=== PATIENT | male | born 2000 | race American Indian/Alaskan Native ===

== ENCOUNTER 2022-01-20 23:08 | Emergency (ER) | payer SELFPAY ==
[2022-01-20 23:28] VITALS: BP 112/77
--- NOTE | 2022-01-21 05:10 | Emergency Department Report ---
ED ENT HPI - General Chief complaint: Earache Stated complaint: EARS RINGING Time Seen by Provider: 01/21/22 04:32 Source: patient Mode of arrival: Ambulatory Limitations: No Limitations - History of Present Illness Initial comments: 21 yo M who present with bilateral ringing and less hearing that started about 3 days ago after he was [place] the [place] range. Pt reports that he was at the gun range and use the proper ear plug. He however says that he started having problem while he was driving home not hearing load music. No fever or chills reported. No drainage from his ear or any other modifying or associated factors. - Related Data Previous Rx's Medication Instructions Recorded Last Taken Type Pseudoephedrine HCl [Sudafed 240 mg PO QDAY 5 Days #5 tab NS 01/21/22 Unknown Rx 24-Hour] predniSONE [Deltasone] 40 mg PO QDAY 5 Days #10 tab NS 01/21/22 Unknown Rx ED Dental HPI - General Chief complaint: Earache Stated complaint: EARS RINGING Time Seen by Provider: 01/21/22 04:32 Source: patient Mode of arrival: Ambulatory Limitations: No Limitations - Related Data Previous Rx's Medication Instructions Recorded Last Taken Type Pseudoephedrine HCl [Sudafed 240 mg PO QDAY 5 Days #5 tab NS 01/21/22 Unknown Rx 24-Hour] predniSONE [Deltasone] 40 mg PO QDAY 5 Days #10 tab NS 01/21/22 Unknown Rx ED Review of Systems ROS: Stated complaint: EARS RINGING Other details as noted in HPI Comment: All other systems reviewed and negative ENT: ear pain, hearing loss ED Past Medical Hx - Medications Home Medications: Home Medications Medication Instructions Recorded Confirmed Last Taken Type Pseudoephedrine HCl [Sudafed 240 mg PO QDAY 5 Days #5 tab NS 01/21/22 Unknown Rx 24-Hour] predniSONE [Deltasone] 40 mg PO QDAY 5 Days #10 tab NS 01/21/22 Unknown Rx ED Physical Exam - General Limitations: No Limitations General appearance: alert, in no apparent distress - Head Head exam: Present: atraumatic, normal inspection - Eye Eye exam: Present: normal appearance, PERRL, EOMI Pupils: Present: normal accommodation - ENT ENT exam: Present: normal exam, normal orophraynx, other (bulging TM bilaterally with no erythema or sign of infection ) - Neck Neck exam: Present: normal inspection, full ROM. Absent: tenderness - Respiratory Respiratory exam: Present: normal lung sounds bilaterally. Absent: respiratory distress, accessory muscle use - Cardiovascular Cardiovascular Exam: Present: regular rate, normal rhythm, normal heart sounds - GI/Abdominal GI/Abdominal exam: Present: soft, normal bowel sounds. Absent: distended, tenderness - Neurological Exam Neurological exam: Present: alert, oriented X3 - Psychiatric Psychiatric exam: Present: normal affect, normal mood ED Course Vital Signs 01/20/22 23:22 Temperature 98.1 F Pulse Rate 55 L Respiratory 18 Rate Blood Pressure 112/77 O2 Sat by Pulse 100 Oximetry - Reevaluation(s) Reevaluation #1: 01/21/22 05:08 here with bilateral ear ringing and some hearing loss-- noted with bilateral TM budging without erythema gun loud noise probably contributed to symptoms-- will d/c home on prednisone and over the counter Sudafed to help symptoms-- Critical care attestation.: If time is entered above; I have spent that time in minutes in the direct care of this critically ill patient, excluding procedure time. ED Disposition Clinical Impression: Acute pain of both ears, Tinnitus of both ears Disposition: HOME / SELF CARE / HOMELESS Is pt being admited?: No Does the pt Need Aspirin: No Condition: Stable Instructions: Earache, Adult, Tinnitus Additional Instructions: Avoid loud noise at this point to prevent worsening of symptoms Take a complete your medication to help your symptoms : Follow-up with your primary doctor in the next 3 to 5 days for progress Call or return to emergency if your symptoms worsen Prescriptions: predniSONE [Deltasone] 40 mg PO QDAY 5 Days #10 tab NS Pseudoephedrine HCl [Sudafed 24-Hour] 240 mg PO QDAY 5 Days #5 tab NS Referrals: PRIMARY CARE, [Primary Care Provider] - 3-5 Days
== END 2022-01-21 05:23 | disposition home or self-care (01) ==
LOC: ED 23:08
DX: H93.13 Tinnitus, bilateral (principal); Z79.899 Other long term (current) drug therapy
CPT/HCPCS: 99282